=== PATIENT | female | born 1970 | race Caucasian/White ===

== ENCOUNTER 2017-02-19 14:06 | Emergency (ER) | payer BC ==
[2017-02-19 14:18] VITALS: BP 132/95; PULSE 62; TEMP 98.1; BMI 24.7
--- NOTE | 2017-02-19 16:41 | PDOC ---
History of Present Illness <SammFelydonna Braga - Last Filed: 02/19/17 16:42> - General History Source: Patient Exam Limitations: No Limitations - History of Present Illness Initial Comments: 02/19/17 17:17 The patient is a 43 year old female, with significant past medical history of fibromyalgia, tubal ligation, cervical herniations, degenerative disc disease and bulging discs, who presents today complaining of vaginal bleeding with clots since 02/01/17. The patient states that she is going through menopause. She notes that she had vaginal bleeding for 3 weeks; however, over the past week there has been heavy clotting. She reports that the bleeding is exacerbated when she is walking around and on her feet all day. The bleeding is alleviated upon laying down. The patient is concerned that she has been bleeding heavily for so long and wanted to be examined. Denies urinary changes. Denies vaginal discharge. Denies fever, chills, nausea, vomiting, diarrhea. Denies abdominal pain. Allergies: codeine, penicillin Licensed Practical Nurse Instructor: Dr. Davy Andersen Hx: Tobacco use. <Richelle Christopher - Last Filed: 02/19/17 17:37> - General Chief Complaint: Vaginal Bleeding Stated Complaint: VAGINAL BLEEDING Time Seen by Provider: 02/19/17 16:29 Past History - Past Medical History Other medical history: FIBROMYALGIA - Surgical History Abdominal Surgery: Yes (TUBAL LIGATION) - Reproductive History (#): 4 Para: 2 - Psycho/Social/Smoking Cessation Hx Anxiety: No Suicidal Ideation: No Smoking History: Current every day smoker Have you smoked in the past 12 months: Yes Number of Cigarettes Smoked Daily: 20 Information on smoking cessation initiated: Yes 'Breaking Loose' booklet given: 02/19/17 Hx Alcohol Use: No Drug/Substance Use Hx: No Substance Use Type: None, Prescribed <SammFelydonna Braga - Last Filed: 02/19/17 16:42> <Richelle Christopher - Last Filed: 02/19/17 17:37> - Past Medical History Allergies/Adverse Reactions: Allergies Allergy/AdvReac Type Severity Reaction Status Date / Time codeine Allergy Verified 02/19/17 14:13 Penicillins AdvReac Verified 02/19/17 14:13 Home Medications: Ambulatory Orders Oxycodone HCl/Acetaminophen [Percocet 10-325 mg Tablet] 1 each PO Q6H PRN Review of Systems - Review of Systems Able to Perform ROS?: Yes Comments:: 02/19/17 17:17 CONSTITUTIONAL: Absent: fever, chills, diaphoresis, generalized weakness, malaise, loss of appetite HEENT: Absent: rhinorrhea, nasal congestion, throat pain, throat swelling, difficulty swallowing, mouth swelling, ear pain, eye pain, visual Changes CARDIOVASCULAR: Absent: chest pain, syncope, palpitations, irregular heart rate, lightheadedness , peripheral edema RESPIRATORY: Absent: cough, shortness of breath, dyspnea with exertion, orthopnea, wheezing, stridor, hemoptysis GASTROINTESTINAL: Absent: abdominal pain, abdominal distension, nausea, vomiting, diarrhea, constipation, melena, hematochezia GENITOURINARY: Present: vaginal bleeding and clotting Absent: dysuria, frequency, urgency, hesitancy, hematuria, flank pain, genital pain MUSCULOSKELETAL: Absent: myalgia, arthralgia, joint swelling SKIN: Absent: rash, itching, pallor HEMATOLOGIC/IMMUNOLOGIC: Absent: easy bleeding, easy bruising, lymphadenopathy, frequent infections ENDOCRINE: Absent: unexplained weight gain, unexplained weight loss, heat intolerance, cold intolerance NEUROLOGIC: Absent: headache, focal weakness or paresthesias, dizziness, unsteady gait, seizure, mental status changes, bladder or bowel incontinence PSYCHIATRIC: Absent: anxiety, depression, suicidal or homicidal ideation, hallucinations. <Richelle Christopher - Last Filed: 02/19/17 17:37> *Physical Exam - Vital Signs Last Vital Signs Temp Pulse Resp BP Pulse Ox 98.1 F 62 18 132/95 100 02/19/17 14:14 02/19/17 14:14 02/19/17 14:14 02/19/17 14:14 02/19/17 14:14 <Fely Quijano - Last Filed: 02/19/17 16:42> - Vital Signs Last Vital Signs Temp Pulse Resp BP Pulse Ox 98.1 F 62 18 132/95 100 02/19/17 14:14 02/19/17 14:14 02/19/17 14:14 02/19/17 14:14 02/19/17 14:14 - Physical Exam Comments: 02/19/17 17:36 GENERAL: Well developed, well nourished. Awake and alert. In no acute distress. HEENT: Normocephalic, atraumatic. PERRLA, EOMI. No conjunctival pallor. Sclera are non- icteric. Moist mucous membranes. Oropharynx is clear. NECK: Supple. Full ROM. No JVD. Carotid pulses 2+ and symmetric, without bruits. No thyromegaly. No lymphadenopathy. CARDIOVASCULAR: Regular rate and rhythm. No murmurs, rubs, or gallops. Distal pulses are 2+ and symmetric. PULMONARY: No evidence of respiratory distress. Lungs clear to auscultation bilaterally. No wheezing, rales or rhonchi. ABDOMINAL: Soft. Non-tender. Non-distended. No rebound or guarding. No organomegaly. Normoactive bowel sounds. PELVIC: Mild blood on the speculum. No large clots in the vaginal vault. Ost closed. Scant bleeding. MUSCULOSKELETAL Normal range of motion at all joints. No bony deformities or tenderness. No CVA tenderness. EXTREMITIES: No cyanosis. No clubbing. No edema. No calf tenderness. SKIN: Warm and dry. Normal capillary refill. No rashes. No jaundice. NEUROLOGICAL: Alert, awake, appropriate. Cranial nerves 2-12 intact. No deficits to light touch and temperature in face, upper extremities and lower extremities. No motor deficits in the in face, upper extremities and lower extremities. Normoreflexic in the upper and lower extremities. Normal speech. Toes are downgoing bilaterally. Gait is normal without ataxia. PSYCHIATRIC: Cooperative. Good eye contact. Appropriate mood and affect. <Richelle Christopher - Last Filed: 02/19/17 17:37> Medical Decision Making - Medical Decision Making 02/19/17 16:42 pelvic exam scan blood in vaginal vlaut,os closed,no large clots pmh tubal ligation years ago LMP 3 months ago IMP perimenopausal menses, ??fibroid <Fely Quijano - Last Filed: 02/19/17 16:42> *DC/Admit/Observation/Transfer <Fely Quijano - Last Filed: 02/19/17 16:42> - Attestations Scribe Attestion: 02/19/17 17:18 Documentation prepared by ZE Bobby, acting as medical billing and coding instructor for Fely Quijano MD. <Richelle Christopher - Last Filed: 02/19/17 17:37> Diagnosis at time of Disposition: Eloped - Discharge Dispostion Disposition: ELOPED - Referrals Referrals: Cheng Pollard [Primary Care Provider] -
== END 2017-02-19 17:16 | disposition left against medical advice (07) ==
LOC: JER 14:06
DX: N93.8 Other specified abnormal uterine and vaginal bleeding (principal)
CPT/HCPCS: 99283-25

== ENCOUNTER 2019-04-25 15:48 | Emergency (ER) | payer SELFPAY, BC | END 2019-04-25 16:50 | disposition left against medical advice (07) | LOC: FER 15:48 ==

== ENCOUNTER 2024-02-04 15:11 | Emergency (ER) | payer OTHER ==
[2024-02-04 15:16] VITALS: BP 168/87; PULSE 65; RESP 20; TEMP 97.7; BMI 25.7
== END 2024-02-04 18:03 | disposition left against medical advice (07) ==
LOC: JER 15:11
DX: M54.2 Cervicalgia (principal); R42 Dizziness and giddiness; I65.29 Occlusion and stenosis of unspecified carotid artery
CPT/HCPCS: 99282-25